=== PATIENT | male | born 2000 | race Caucasian/White ===

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

== ENCOUNTER 2022-12-02 22:33 | Emergency (ER) | payer MEDICAID, OTHER ==
[~2022-12-02] VITALS: Ht 180.3 cm; Wt 64.3 kg
[2022-12-02] MEDS ORDERED: MIDAZOLAM 100MG/100ML-0.9%NACL 100 MG in IV 1 EA IV SCH (22:45)
[2022-12-02] MEDS ORDERED: NS 1,000 ML IV ONE (22:45)
[2022-12-02] MEDS ORDERED: ISOVUE-370 76% 100ML VIAL As Ordered ONE (22:48)
[2022-12-02 23:22] LABS: ABG BASE EXCESS -8.7 (-2.0-2.0); ABG HCO3 17.4 MMOL/L (22.0-26.0); ABG O2 SATURATION 99.2 % (95.0-99.0); ABG PARTIAL PRESSURE CO2 38.6 mmHg (35.0-45.0); ABG PARTIAL PRESSURE O2 233.2 mmHg (75.0-100.0); ABG STANDARD HCO3 17.6 MMOL/L. (22.0-26.0); ABG TOTAL CO2 18.6 MMOL/L (22.0-29.0); ABG pH (ARTERIAL) 7.273 UNITS (7.350-7.450)
[2022-12-02] MEDS ORDERED: PROPOFOL 1,000 MG/100 ML VIAL As Ordered ONE (23:23)
[2022-12-02] MEDS ORDERED: propofoL 1,000 MG in IV 1 EA IV SCH (23:25)
[2022-12-02 23:27] LABS: BASO # 0.1 10^3/uL (0.0-0.2); BASO % 0.3 % (0.0-1.0); EOS % 0.1 % (0.0-3.0); HEMATOCRIT 39.6 % (42.0-52.0); HEMOGLOBIN 13.6 g/dl (13.5-17.5); LYMPH % 11.1 % (24.0-44.0); MEAN CORPUSCULAR HEMOGLOBIN 32.1 pg (27.0-33.0); MEAN CORPUSCULAR HGB CONC 34.3 g/dl (32.0-36.5); MEAN CORPUSCULAR VOLUME 93.4 fl (80.0-96.0); MONO # 0.9 10^3/uL (0.0-0.8); MONO % 5.1 % (2.0-8.0); NEUTROPHILS # 14.8 10^3/uL (1.5-8.5); NEUTROPHILS % 82.3 % (36.0-66.0); PLATELET COUNT, AUTOMATED 154 10^3/uL (150-450); RED BLOOD COUNT 4.24 10^6/uL (4.30-6.10)
[2022-12-02 23:30] LABS: APPEARANCE, URINE CLEAR (CLEAR); BACTERIA, URINE AUTO NEGATIVE (NEGATIVE); BILIRUBIN, URINE AUTO NEGATIVE (NEGATIVE); BLOOD, URINE BLOOD 3+ (NEGATIVE); COLOR, URINE YELLOW (YELLOW); GLUCOSE, URINE (UA) AUTO NEGATIVE (NEGATIVE); KETONE, URINE AUTO NEGATIVE (NEGATIVE); LEUKOCYTE ESTERASE, URINE AUTO NEGATIVE (NEGATIVE); NITRITE, URINE AUTO NEGATIVE (NEGATIVE); PROTEIN, URINE AUTO 1+ mg/dL (NEGATIVE); RBC, URINE AUTO 99 /HPF (0-3); SPECIFIC GRAVITY URINE AUTO 1.021 (1.002-1.035); SQUAMOUS EPITHELIAL CELL UR AU 0 /HPF (0-6); UROBILINOGEN, URINE AUTO 0.2 mg/dL (0.0-2.0); WBC, URINE AUTO 5 /HPF (0-3)
[2022-12-02 23:37] LABS: INR 1.29; PROTHROMBIN TIME 16.3 SECONDS (12.5-14.5)
[2022-12-02 23:38] LABS: PARTIAL THROMBOPLASTIN TIME 29.7 SECONDS (24.8-34.2)
[2022-12-02 23:58] LABS: ETHYL ALCOHOL (ETHANOL) 0.189 % (0.000-0.010)
[2022-12-03 00:01] LABS: ALBUMIN 3.3 G/DL (3.2-5.2); ALKALINE PHOSPHATASE 75 U/L (46-116); ALT/SGPT 72 U/L (7.0-40); AST/SGOT 97 U/L (<34); BILIRUBIN,DIRECT 0.2 MG/DL (<0.4); BILIRUBIN,TOTAL 0.5 MG/DL (0.3-1.2); BLOOD UREA NITROGEN 8 MG/DL (9-23); CARBON DIOXIDE LEVEL 22 MMOL/L (20-31); CHLORIDE LEVEL 106 MMOL/L (98-107); CK-MB VALUE MASS 2.3 NG/ML (<3.6); CPK CREATINE PHOSPHOKINASE 306 U/L (46-171); CREATININE FOR GFR 0.71 MG/DL (0.70-1.30); GLOMERULAR FILTRATION RATE > 60.0 (>60); GLUCOSE, FASTING 135 MG/DL (60-100); MB/CK RELATIVE INDEX 0.75 (< OR =4); POTASSIUM SERUM 3.3 MMOL/L (3.5-5.1); SODIUM LEVEL 137 MMOL/L (136-145); TOTAL PROTEIN 5.5 G/DL (5.7-8.2)
[2022-12-03] MEDS ORDERED: BOOSTRIX VACCINE (TETANUS/DIPHTH/ACEL. PERTUSSIS) 0.5ML SYR IM ONE (00:05)
[2022-12-03 00:29] VITALS: BP 107/57
== END 2022-12-03 01:10 | disposition short-term general hospital (02) ==
LOC: EDBD 22:33 → M ED 22:33
DX: J96.00 Acute respiratory failure, unspecified whether with hypoxia or hypercapnia (principal); S27.322A Contusion of lung, bilateral, initial encounter; S36.031A Moderate laceration of spleen, initial encounter; S41.112A Laceration without foreign body of left upper arm, initial encounter; R00.0 Tachycardia, unspecified; I45.19 Other right bundle-branch block; V47.1XXA Car passenger injured in collision with fixed or stationary object in nontraffic accident, initial encounter
CPT/HCPCS: 31500; 36600; 51702; 70450; 70486; 71045; 71260; 72125; 72170; 74177; 80048; 80076; 81001; 82077; 82550; 82553; 82803; 83605; 85025; 85610; 85730; 86850; 86900; 86901; 86920; 93005; 93041; 94760; 96365; 99291; 99292; J2250; Q9967